=== PATIENT | female | born 1995 | race Caucasian/White ===

== ENCOUNTER 2020-06-26 11:19 | Emergency (ER) | payer BC, OTHER ==
--- NOTE | 2020-06-26 11:39 | ED Physician Documentation ---
History of Present Illness - Stated complaint Stated Complaint: FEMALE - Chief complaint Chief Complaint: Abd Pain - History obtained from History obtained from: Patient - History of Present Illness Timing: How many weeks ago (4) - Additonal information Additional information: 25-year-old female presents to the emergency department with chief complaint of persistent vaginal bleeding for 1 month ever since her IUD was removed. IUD had been in for about 2 years and it was removed in anticipation of family-planning. Patient denies that there were ever any problems with the IUD placement. She states that there are times where she will not bleed for maybe 24 hours but then flow will increase. Been persistently heavy for the last 2 to 3 days using on average 5-6 tampons a day. She does endorse mild cramping. No fevers, syncope or vertigo. No chest pain or dyspnea. She did call her OB office and was advised to follow-up in the emergency department. no pertinent psh meds: none soc: occassional tobacco and etoh Review of Systems Constitutional: reports: Reviewed and negative Nose: reports: Reviewed and negative Throat: reports: Reviewed and negative Cardiac: reports: Reviewed and negative Respiratory: reports: Reviewed and negative GI: reports: Abdominal Pain. denies: Nausea, Vomiting, Constipation, Diarrhea, Hematemesis : reports: Vaginal bleeding. denies: Dysuria, Frequency, Hesitancy Skin: reports: Reviewed and negative Musculoskeletal: reports: Reviewed and negative Neurologic: reports: Reviewed and negative. denies: Focal weakness, Near syncope, Syncope, Seizure, Headache Psychiatric: reports: Reviewed and negative Endocrine: reports: Reviewed and negative PD PAST MEDICAL HISTORY - Allergies Allergies/Adverse Reactions: Allergies Allergy/AdvReac Type Severity Reaction Status Date / Time No Known Drug Allergies Allergy Verified 06/26/20 11:27 PD ED PE EXPANDED - General General: Alert, Other (obese) - HEENT HEENT: Atraumatic, PERRL, EOMI - Neck Neck: Supple w/out meningeal sx, No tenderness. No: Limited ROM - Cardiac Cardiac: Regular Rate, Radial strong equal, Pedal strong equal, Cap refill < 2 sec - Respiratory Respiratory: Clear to ausultation lashawn. No: Distress, Labored - Abdomen Abdomen: Normal Bowel sounds. No: Tender to palpation - Derm Derm: Normal color. No: Rash, Petecchiae, Purpura - Neuro Neuro: CNII-XII intact - GCS Eye Opening: Spontaneous Motor: Obeys Commands Verbal: Oriented Total: 15 Results - Vitals Vitals: Vital Signs - 24 hr 06/26/20 06/26/20 11:24 13:27 Temperature 37 C Heart Rate 56 L 70 Respiratory 18 18 Rate Blood Pressure 152/111 H 104/62 O2 Saturation 98 99 Oxygen O2 Source Room air - Labs Labs: Laboratory Tests 06/26/20 06/26/20 06/26/20 11:33 11:58 11:58 WBC 9.0 RBC 4.32 Hgb 13.2 Hct 39.6 MCV 91.7 MCH 30.6 MCHC 33.3 RDW 12.4 Plt Count 288 MPV 8.8 Neut # (Auto) 5.1 Lymph # (Auto) 3.1 [place] # (Auto) 0.5 Eos # (Auto) 0.2 Baso # (Auto) 0.0 Absolute Nucleated RBC 0.00 Nucleated RBC % 0.0 Sodium 139 Potassium 3.9 Chloride 104 Carbon Dioxide 24 Anion Gap 11.0 BUN 10 Creatinine 0.7 Estimated GFR (MDRD) 102 Glucose 97 Calcium 8.8 Total Bilirubin 0.7 AST 15 ALT 17 Alkaline Phosphatase 71 Total Protein 6.3 L Albumin 3.6 Globulin 2.7 Albumin/Globulin Ratio 1.3 Lipase 29 TSH HCG, Quant Urine Color YELLOW Urine Clarity HAZY Urine pH 7.0 Ur Specific [place] 1.015 Urine Protein NEGATIVE Urine Glucose (UA) NEGATIVE Urine Ketones NEGATIVE Urine Occult Blood LARGE H Urine Nitrite NEGATIVE Urine Bilirubin NEGATIVE Urine Urobilinogen 0.2 (NORMAL) Ur Leukocyte Esterase NEGATIVE Urine RBC TNTC H Urine WBC 0-3 Ur Squamous Epith Cells RARE Squamous Urine Bacteria Rare Ur Microscopic Review INDICATED Urine Culture Comments NOT INDICATED 06/26/20 06/26/20 11:58 11:58 WBC RBC Hgb Hct MCV MCH MCHC RDW Plt Count MPV Neut # (Auto) Lymph # (Auto) [place] # (Auto) Eos # (Auto) Baso # (Auto) Absolute Nucleated RBC Nucleated RBC % Sodium Potassium Chloride Carbon Dioxide Anion Gap BUN Creatinine Estimated GFR (MDRD) Glucose Calcium Total Bilirubin AST ALT Alkaline Phosphatase Total Protein Albumin Globulin Albumin/Globulin Ratio Lipase TSH 2.04 HCG, Quant < 0.60 Urine Color Urine Clarity Urine pH Ur Specific [place] Urine Protein Urine Glucose (UA) Urine Ketones Urine Occult Blood Urine Nitrite Urine Bilirubin Urine Urobilinogen Ur Leukocyte Esterase Urine RBC Urine WBC Ur Squamous Epith Cells Urine Bacteria Ur Microscopic Review Urine Culture Comments - Rads (name of study) pelvic US Radiology: Final report received, See rad report, Other (Tech reports to me no endometrial thickening. Findings of a left ovarian cyst. Pelvic fluid) PD MEDICAL DECISION MAKING - ED course Complexity details: reviewed results, re-evaluated patient, considered differential, d/w patient, d/w family ED course: 25-year-old female presents to the emergency department for evaluation of persistent vaginal bleeding for nearly 1 month following her IUD removal. Today in the emergency department and she has been normotensive and without tachycardia. Her hemoglobin globin is normal. Her electrolytes are unremarkable. She is not . Pelvic ultrasound did not reveal endometrial thickening or uterine fibroid. There is no free fluid in the pelvic cul-de-sac. We do make note of a left ovarian cyst. I discussed the presentation with the patient and her partner at the bedside. The IUD was removed because they desire to get . We discussed that it can often take 1 to 3 months for the menses to regulate once an IUD has been removed. We discussed that reassuringly she has no tachycardia or anemia and her exam is otherwise unremarkable. She does report to me that there are days that she does not bleed at all however otherwise she has a. Like cycle. I have advised her to have close follow-up with her OB to discuss this ED visit. If her cycles do not regulate a short term course of hormone replacement therapy can be considered Departure - Departure Disposition: 01 Home, Self Care Clinical Impression: Vaginal bleeding Condition: Stable Record reviewed to determine appropriate education?: Yes Instructions: ED Bleed Irregular Vaginal Comments: Kaylynn please discuss this ED visit with your OB. It can take 1 to 3 months for most menstrual cycles to regulate once an IUD has been removed. Today your labs are essentially unremarkable. You are not anemic. The ultrasound did not show any worrisome findings. Specifically no endometrial thickening or uterine fibroids. If at any point you have severe vaginal bleeding which is defined as saturating 1 pad or tampon an hour for 6 to 10 hours, have a racing heart greater than 120 at rest, feel faint or lightheaded or you feel that your symptoms are not improving please return to the emergency department
[2020-06-26 11:43] LABS: BILIRUBIN,URINE NEGATIVE (NEGATIVE); GLUCOSE, URINE (UA) NEGATIVE (NEGATIVE); KETONES,URINE (UA) NEGATIVE (NEGATIVE); LEUKOCYTE ESTERASE, URINE NEGATIVE (NEGATIVE); NITRITE,URINE NEGATIVE (NEGATIVE); OCCULT BLOOD,URINE LARGE (NEGATIVE); PROTEIN,URINE NEGATIVE (NEGATIVE); UROBILINOGEN,URINE 0.2 (NORMAL) E.U./dL (NORMAL)
[2020-06-26 11:44] LABS: CLARITY,URINE HAZY (CLEAR)
[2020-06-26 11:54] LABS: BACTERIA,URINE Rare /HPF (None Seen); RBC,URINE TNTC /HPF (0-5); SQUAMOUS EPITHELIAL CELL,UR RARE Squamous (<= Few)
[2020-06-26 12:03] LABS: BASOPHILS % (AUTO) 0.2 %; EOSINOPHILS # (AUTO) 0.2 10^3/uL (0.0-0.7); EOSINOPHILS % (AUTO) 1.7 %; HGB - HEMOGLOBIN 13.2 g/dL (12.0-16.0); LYMPHOCYTES # (AUTO) 3.1 10^3/uL (1.5-3.5); LYMPHOCYTES % (AUTO) 34.9 %; MEAN CORPUSCULAR HEMOGLOBIN 30.6 pg (27.0-31.0); MEAN CORPUSCULAR HGB CONC 33.3 g/dL (32.0-36.0); MEAN CORPUSCULAR VOLUME 91.7 fL (81.0-99.0); MEAN PLATELET VOLUME 8.8 fL (7.9-10.8); MONOCYTES # (AUTO) 0.5 10^3/uL (0.0-1.0); MONOCYTES % (AUTO) 5.9 %; NEUTROPHILS # (AUTO) 5.1 10^3/uL (1.5-6.6); NEUTROPHILS % (AUTO) 57.2 %; PLT - PLATELET COUNT 288 10^3/uL (130-450); RED BLOOD COUNT 4.32 10^6/uL (4.20-5.40); RED CELL DISTRIBUTION WIDTH 12.4 % (12.0-15.0)
[2020-06-26 12:18] LABS: ALBUMIN 3.6 g/dL (3.2-5.5); ALBUMIN/GLOBULIN RATIO 1.3 (1.0-2.2); BILIRUBIN,TOTAL 0.7 mg/dL (0.2-1.0); CALCIUM 8.8 mg/dL (8.5-10.3); CREATININE 0.7 mg/dL (0.4-1.0); TOTAL PROTEIN 6.3 g/dL (6.7-8.2)
--- NOTE | 2020-06-26 14:43 | Ultrasound Report ---
PROCEDURE: Pelvic w/Transvaginal INDICATIONS: PERSISTENT VAGINAL BLEEDING FOLLOWING IUD TECHNIQUE: Real-time scanning was performed of the pelvic organs, with image documentation. Additional endovagi nal scanning was necessary due to incomplete visualization of the adnexal and endometrial structures by transabdominal scanning. COMPARISON: None. FINDINGS: Transabdominal scanning: Limited scanning through the kidneys shows no hydronephrosis. No pathologi c free abdominal or pelvic fluid. Endovaginal scanning: Uterus: Uterus is normal in size at 9.1 x 3.2 x 3.7 cm. The endometrium measures 6.8 mm in combined thickness. Ovaries: Right ovary measures 2.7 x 2.0 x 1.9 cm. Left ovary measures 4.0 x 2.4 x 2.0 cm. Focus of d ecreased echogenicity is present within the left ovary measured 2.7 x 1.9 x 1.7 cm. IMPRESSION: Left ovarian cyst. No visualized cause of vaginal bleeding. Reviewed by: Jeane Alvarenga MD on 06/26/2020 2:42 PM PST Approved by: Jeane Alvarenga MD on 06/26/2020 2:42 PM PST Station ID: [id number]
[2020-06-26 14:59] VITALS: BP 106/79
== END 2020-06-26 14:58 | disposition home or self-care (01) ==
LOC: ED 11:19
DX: N93.9 Abnormal uterine and vaginal bleeding, unspecified (principal); N83.202 Unspecified ovarian cyst, left side; F17.200 Nicotine dependence, unspecified, uncomplicated
CPT/HCPCS: 36415; 76830; 76856; 80053; 81001; 81003; 83690; 84443; 84702; 85025; 87086; 99284

== ENCOUNTER 2021-11-08 13:27 | Outpatient (CLI) | payer BC | END 2021-11-08 13:28 | disposition home or self-care (01) | LOC: LAB 13:27 | PROVIDERS: ATTEND Nurse Practitioner Obstetrics & Gynecology | DX: O20.0 Threatened abortion (principal) | CPT/HCPCS: 36415; 84702; 86850; 86900; 86901 ==

== ENCOUNTER 2021-11-08 14:00 | Emergency (ER) | payer BC ==
[2021-11-08 14:27] LABS: CALCIUM 9.8 mg/dL (8.5-10.3); CREATININE 0.8 mg/dL (0.4-1.0); POTASSIUM 3.9 mmol/L (3.5-5.0)
[2021-11-08 14:29] LABS: BASOPHILS % (AUTO) 0.4 %; EOSINOPHILS # (AUTO) 0.1 10^3/uL (0.0-0.7); EOSINOPHILS % (AUTO) 0.8 %; HGB - HEMOGLOBIN 13.5 g/dL (12.0-16.0); LYMPHOCYTES # (AUTO) 2.7 10^3/uL (1.5-3.5); LYMPHOCYTES % (AUTO) 29.9 %; MEAN CORPUSCULAR HEMOGLOBIN 30.9 pg (27.0-31.0); MEAN CORPUSCULAR HGB CONC 34.6 g/dL (32.0-36.0); MEAN CORPUSCULAR VOLUME 89.2 fL (81.0-99.0); MEAN PLATELET VOLUME 9.1 fL (7.9-10.8); MONOCYTES # (AUTO) 0.6 10^3/uL (0.0-1.0); NEUTROPHILS # (AUTO) 5.7 10^3/uL (1.5-6.6); NEUTROPHILS % (AUTO) 61.8 %; PLT - PLATELET COUNT 332 10^3/uL (130-450); RED BLOOD COUNT 4.37 10^6/uL (4.20-5.40); RED CELL DISTRIBUTION WIDTH 11.9 % (12.0-15.0); WHITE BLOOD COUNT 9.1 x10^3/uL (4.8-10.8)
--- NOTE | 2021-11-08 14:41 | ED Physician Documentation ---
History of Present Illness - Stated complaint Stated Complaint: BLEEDING/SPOTTING - Chief complaint Chief Complaint: Abd Pain - Additonal information Additional information: 26-year-old female presents emergency department for evaluation of 3 hours heavy vaginal bleeding and lower pelvic cramping. She is newly . LMP 09/30/2021. G1, P0. She denies any fevers. She has had some mild nausea and vomiting. No dysuria urgency or frequency. She is scheduled to establish with OB next week. This is a desired . Review of Systems Constitutional: denies: Fever, Chills Throat: reports: Reviewed and negative Cardiac: reports: Reviewed and negative Respiratory: reports: Reviewed and negative GI: reports: Nausea, Vomiting : reports: LMP (09/30/2021), Vaginal bleeding Skin: reports: Reviewed and negative Musculoskeletal: reports: Reviewed and negative PD PAST MEDICAL HISTORY - Past Surgical History Past Surgical History: No - Allergies Allergies/Adverse Reactions: Allergies Allergy/AdvReac Type Severity Reaction Status Date / Time No Known Drug Allergies Allergy Verified 11/08/21 14:06 - Social History Does the pt smoke?: No Smoking Status: Never smoker PD ED PE NORMAL - General General: Alert and oriented X 3, No acute distress, Well developed/nourished, Other (Obese tearful crying) - Neck Neck: Supple, no meningeal sign, No adenopathy - Cardiac Cardiac: RRR, No murmur - Respiratory Respiratory: No respiratory distress, Clear bilaterally - Abdomen Abdomen: Normal bowel sounds, Soft, Non tender (Mild nonfocal lower pelvic tenderness. 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 Eye Opening: Spontaneous Motor: Obeys Commands Verbal: Oriented GCS Score: 15 - Psych Psych: Other (tearful, crying) Results - Vitals Vitals: Vital Signs - 24 hr 11/08/21 11/08/21 14:02 14:06 Temperature 36.2 C L 36.5 C Heart Rate 61 61 Respiratory 16 16 Rate Blood Pressure 142/92 H 142/92 H O2 Saturation 99 99 Oxygen O2 Source Room air - Labs Labs: Laboratory Tests 0311/08/21 11/08/21 13:48 14:22 14:26 WBC 9.1 RBC 4.37 Hgb 13.5 Hct 39.0 MCV 89.2 MCH 30.9 MCHC 34.6 RDW 11.9 L Plt Count 332 MPV 9.1 Neut # (Auto) 5.7 Lymph # (Auto) 2.7 [place] # (Auto) 0.6 Eos # (Auto) 0.1 Baso # (Auto) 0.0 Absolute Nucleated RBC 0.00 Nucleated RBC % 0.0 Sodium 137 Potassium 3.9 Chloride 105 Carbon Dioxide 21 Anion Gap 11.0 BUN 11 Creatinine 0.8 Estimated GFR (MDRD) 87 L Glucose 103 H Calcium 9.8 Urine Color YELLOW Urine Clarity HAZY Urine pH 5.0 Ur Specific [place] >=1.030 H Urine Protein NEGATIVE Urine Glucose (UA) NEGATIVE Urine Ketones NEGATIVE Urine Occult Blood LARGE H Urine Nitrite NEGATIVE Urine Bilirubin NEGATIVE Urine Urobilinogen 0.2 (NORMAL) Ur Leukocyte Esterase NEGATIVE Urine RBC TNTC H Urine WBC 4-5 Ur Squamous Epith Cells FEW Squamous Urine Bacteria Rare Ur Microscopic Review INDICATED Urine Culture Comments NOT INDICATED Urine HCG, Qual NEGATIVE - Rads (name of study) OB US Radiology: Other (Per building services technician. No IUP seen positive right corpus luteal cyst) PD MEDICAL DECISION MAKING - ED course Complexity details: reviewed results, re-evaluated patient, considered d ifferential, d/w patient ED course: 26-year-old female presents emergency department for evaluation of acute onset vaginal bleeding. She reports that she tested positive via urine for multiple times last week. She is concerned that she could be having a miscarriage. Today her urine is negative for however her serum hCG measures at just 7. Ultrasound did not reveal an IUP. I discussed with the patient that the threshold for urine is typically 20-25. Given that her urine is negative today and her hCG is 7 I suspect that this is likely a miscarriage. Given the lack of focal pain or findings of an IUP I advised patient to follow-up with her OB to determine if she should have repeat labs obtained within the next week or so. I discussed that in the setting of what I suspect is a miscarriage she could expect to have. Like vaginal bleeding or perhaps something a little heavier over the next few days. Otherwise emergent return precautions were discussed for severe vaginal bleeding, sudden severe focal lower abdominal pain or uncontrolled vomiting. Departure - Departure Disposition: 01 Home, Self Care Clinical Impression: Miscarriage Condition: Stable Record reviewed to determine appropriate education?: Yes Instructions: Miscarriage Dc Comments: Kaylynn santana are seen today in the emergency department for vaginal bleeding. You reported that you tested positive for at home a number of times earlier in the week. The hormone level that is usually consistent with urine testing positive for is usually around 20-25. Today your hormone level is 7 and your urine does not show that you are . The ultrasound also shows no signs of intrauterine . I suspect that what is occurring is that you are having a miscarriage very early in your first trimester. Given how early this miscarriages I would expect you to have. Like vaginal bleeding or something that is a little heavier for the next few days. If at any point you develop sudden severe vaginal bleeding, have fainting, uncontrolled vomiting or sudden severe lower belly pain then please return to the ER for second evaluation. Please discuss this ED visit with your OB at [facility] to determine if they want to recheck your labs within the next week. In general in people who are otherwise healthy you can attempt to get again after your next full cycle. I am sorry that this is happening to you and I wish you well moving forward
[2021-11-08 14:43] LABS: BILIRUBIN,URINE NEGATIVE (NEGATIVE); GLUCOSE, URINE (UA) NEGATIVE (NEGATIVE); KETONES,URINE (UA) NEGATIVE (NEGATIVE); LEUKOCYTE ESTERASE, URINE NEGATIVE (NEGATIVE); NITRITE,URINE NEGATIVE (NEGATIVE); OCCULT BLOOD,URINE LARGE (NEGATIVE); PROTEIN,URINE NEGATIVE (NEGATIVE); UROBILINOGEN,URINE 0.2 (NORMAL) E.U./dL (NORMAL)
[2021-11-08 14:45] LABS: CLARITY,URINE HAZY (CLEAR); HCG UR QUAL NEGATIVE
[2021-11-08 15:13] LABS: BACTERIA,URINE Rare /HPF (None Seen); RBC,URINE TNTC /HPF (0-5); SQUAMOUS EPITHELIAL CELL,UR FEW Squamous (<= Few)
[2021-11-08 16:08] VITALS: BP 136/80
--- NOTE | 2021-11-08 16:09 | Ultrasound Report ---
PROCEDURE: OB First Trimester w/TV INDICATIONS: vag bleeding TECHNIQUE: Real-time ultrasound imaging of the uterus and ovaries was performed. COMPARISON: None. FINDINGS: The uterus is anteverted. The cervix appears closed. The endometrium is grossly normal in thickness. No endometrial fluid collections. The myometrium is homogeneous. The right ovary contains a dominant follicle measuring 1.5 cm. The left ovary has a grossly normal mo rphology. No suspicious adnexal masses or free fluid. IMPRESSION: 1. Dominant follicle on the right ovary, potentially an early corpus luteum. 2. No evidence of intrauterine . This may reflect early . 3. No secondary signs of ectopic in the pelvis. This however cannot be excluded. Close foll ow-up with beta hCG levels and reimaging in 2-3 weeks to confirm viability is recommended. 4. Preliminary report given by the helicopter mechanic to the ordering provider. Reviewed by: Katherine Mallory MD on 11/08/2021 4:08 PM PDT Approved by: Katherine Mallory MD on 11/08/2021 4:08 PM PDT Station ID: [id number]
== END 2021-11-08 16:07 | disposition home or self-care (01) ==
LOC: ED 14:00
DX: O03.9 Complete or unspecified spontaneous abortion without complication (principal); Z3A.01 Less than 8 weeks gestation of pregnancy
CPT/HCPCS: 36415; 80048; 81001; 81003; 81025; 84702; 85025; 86850; 86900; 86901; 87086; 99284

== ENCOUNTER 2023-12-08 10:33 | Emergency (ER) | payer BC ==
[2023-12-08 10:57] VITALS: O2SAT 99
[2023-12-08 11:20] LABS: BILIRUBIN,URINE MODERATE (NEGATIVE); GLUCOSE, URINE (UA) NEGATIVE (NEGATIVE); KETONES,URINE (UA) >=80 mg/dL (NEGATIVE); LEUKOCYTE ESTERASE, URINE TRACE (NEGATIVE); NITRITE,URINE NEGATIVE (NEGATIVE); OCCULT BLOOD,URINE NEGATIVE (NEGATIVE); PROTEIN,URINE 100 mg/dL (NEGATIVE); UROBILINOGEN,URINE 2 E.U./dL (NORMAL)
[2023-12-08 11:21] LABS: CLARITY,URINE CLEAR (CLEAR)
[2023-12-08 11:22] LABS: HCG UR QUAL NEGATIVE
[2023-12-08 11:29] LABS: BACTERIA,URINE Moderate /HPF (None Seen); RBC,URINE 0-5 /HPF (0-5); SQUAMOUS EPITHELIAL CELL,UR MOD Squamous (<= Few); WBC,URINE 0-3 /HPF (0-5)
[2023-12-08 11:32] LABS: BASOPHILS % (AUTO) 0.3 %; EOSINOPHILS % (AUTO) 0.2 %; HCT - HEMATOCRIT 42.5 % (37.0-47.0); HGB - HEMOGLOBIN 14.5 g/dL (12.0-16.0); LYMPHOCYTES # (AUTO) 2.3 10^3/uL (1.5-3.5); LYMPHOCYTES % (AUTO) 19.7 %; MEAN CORPUSCULAR HEMOGLOBIN 31.3 pg (27.0-31.0); MEAN CORPUSCULAR HGB CONC 34.1 g/dL (32.0-36.0); MEAN CORPUSCULAR VOLUME 91.6 fL (81.0-99.0); MEAN PLATELET VOLUME 9.1 fL (7.9-10.8); MONOCYTES # (AUTO) 0.8 10^3/uL (0.0-1.0); NEUTROPHILS # (AUTO) 8.4 10^3/uL (1.5-6.6); NEUTROPHILS % (AUTO) 72.5 %; PLT - PLATELET COUNT 367 10^3/uL (130-450); RED BLOOD COUNT 4.64 10^6/uL (4.20-5.40); RED CELL DISTRIBUTION WIDTH 12.3 % (12.0-15.0); WHITE BLOOD COUNT 11.5 x10^3/uL (4.8-10.8)
[2023-12-08 11:46] LABS: ALBUMIN 4.6 g/dL (3.2-5.5); ALBUMIN/GLOBULIN RATIO 1.8 (1.0-2.2); BILIRUBIN,TOTAL 0.7 mg/dL (0.2-1.0); CALCIUM 9.9 mg/dL (8.5-10.3); CREATININE 0.9 mg/dL (0.6-1.3); POTASSIUM 3.4 mmol/L (3.5-4.5); TOTAL PROTEIN 7.2 g/dL (6.4-8.9)
--- NOTE | 2023-12-08 12:54 | ED Physician Documentation ---
PD HPI GI BLEED - Stated complaint Stated Complaint: VOMITING BLOOD/DIZZY - Chief complaint Chief Complaint: Abd Pain - Additional information Additional information: 28-year-old female with no pertinent past medical history presents emergency department for midepigastric pain with dark black emesis. Patient says that she recently went to the walk-in clinic and she says that they tested her emesis there and there was found to be blood in it which is what led her to come to the emergency department. Patient states 48 hours ago she started having severe midepigastric pain nausea vomiting and describes her emesis as dark black. She says she has never experienced anything like this before She does not take any medications for anything daily no blood thinners. Last period was about a week ago. 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 : None HEENT: None Psych: Anxiety, Panic attacks Musculoskeletal: None Derm: None - Past Surgical History Past Surgical History: Yes HEENT: Tonsil/Adenoidectomy - Present Medications Home Medications: Ambulatory Orders Medication Instructions Recorded Confirmed Ondansetron Odt [Zofran Odt] 4 mg TL Q6H PRN #10 tablet 12/08/23 Pantoprazole [Protonix] 40 mg ORAL DAILY 30 Days #30 tablet 12/08/23 Sucralfate [Carafate] 1 gm PO QID #100 ml 12/08/23 - Allergies Allergies/Adverse Reactions: Allergies Allergy/AdvReac Type Severity Reaction Status Date / Time No Known Drug Allergies Allergy Verified 12/08/23 10:50 - Social History Does the pt smoke?: Yes Smoking Status: Current some day smoker Does the pt drink ETOH?: Yes Does the pt have substance abuse?: Yes Substance Use and Type: Marijuana, CBD oil / Products - Immunizations Immunizations are current?: No Immunizations: Other immun not current - POLST Patient has POLST: No PD ED PE NORMAL - Vitals Vital signs reviewed: Yes - General General: Alert and oriented X 3, No acute distress, Well developed/nourished - Cardiac Cardiac: RRR - Respiratory Respiratory: No respiratory distress, Clear bilaterally - Abdomen Abdomen: Normal bowel sounds, Soft, No organomegaly, Other (mid-epigastric tenderness) - Back Back: No CVA TTP - Derm Derm: Normal color, Warm and dry, No rash - Extremities Extremities: No deformity, No edema - Neuro Neuro: Alert and oriented X 3 - Psych Psych: Normal mood, Normal affect Results - Vitals Vitals: Vital Signs - 24 hr 12/08/23 12/08/23 10:51 14:00 Temperature 36.5 C Heart Rate 60 54 L Respiratory 18 14 Rate Blood Pressure 141/86 H 132/78 H O2 Saturation 99 99 Oxygen O2 Source Room air - EKG (time done) 1102 EKG releavant findings:: EKG personally interpreted by author of this note. Relevant findings are: Rate: Rate (enter#) (52) Rhythm: Sinus bradycardia [place]: Normal Intervals: Normal HI, QRS normal. No: Prolonged QT QRS: Normal Ischemia: Normal ST segments Computer interpretation: Agree with computer - Labs Labs: Laboratory Tests 12/08/23 12/08/23 12/08/23 11:10 11:20 11:20 WBC 11.5 H RBC 4.64 Hgb 14.5 Hct 42.5 MCV 91.6 MCH 31.3 H MCHC 34.1 RDW 12.3 Plt Count 367 MPV 9.1 Neut # (Auto) 8.4 H Lymph # (Auto) 2.3 [place] # (Auto) 0.8 Eos # (Auto) 0.0 Baso # (Auto) 0.0 Absolute Nucleated RBC 0.00 Nucleated RBC % 0.0 Sodium 139 Potassium 3.4 L Chloride 102 Carbon Dioxide 29 Anion Gap 8.0 BUN 13 Creatinine 0.9 Estimated GFR (MDRD) 75 L Glucose 113 H Calcium 9.9 Total Bilirubin 0.7 AST 10 ALT 10 Alkaline Phosphatase 62 Total Protein 7.2 Albumin 4.6 Globulin 2.6 Albumin/Globulin Ratio 1.8 Lipase 35 Urine Color DARK YELLOW Urine Clarity CLEAR Urine pH 8.0 H Ur Specific [place] 1.025 Urine Protein 100 H Urine Glucose (UA) NEGATIVE Urine Ketones >=80 H Urine Occult Blood NEGATIVE Urine Nitrite NEGATIVE Urine Bilirubin MODERATE H Urine Urobilinogen 2 H Ur Leukocyte Esterase TRACE H Urine RBC 0-5 Urine WBC 0-3 Ur Squamous Epith Cells MOD Squamous H Urine Bacteria Moderate H Ur Microscopic Review INDICATED Urine Culture Comments NOT INDICATED Urine HCG, Qual NEGATIVE - Rads (name of study) CT abdomen pelvis Relevant Findings:: Final report received, EMP independent interpretation of test, Other (Distal antral gastric ulcer with gastritis) PD Medical Decision Making - ED course ED course: 28-year-old female sent to the emergency department from walk-in clinic for concerns of GI bleed and midepigastric pain. Differentials include but are not limited to gastric ulcer with perforation, gastric ulcer, gastritis, upper GI bleed. Labs are complete she has mild leukocytosis, 11.5 neutrophils are slight ly elevated at 8.4 and no anemia. Chemistry is for the most part within normal limits, potassium 3.4, GFR 75, glucose slightly elevated at 113. CT abdomen pelvis with contrast was complete for further evaluation of her abdominal pain and she was found to have a distal antral gastric ulcer with associated gastritis. Patient reported significant if not complete alleviation of pain and symptoms after Carafate, Protonix, Zofran. Patient was given a prescription of Protonix and Carafate to her preferred pharmacy she is also told to follow-up with her primary care provider who she does not have established with right now she said that she is reaching out to someone off the sims to get established with her primary care she is also given [facility] contact information for further evaluation of this and possible endoscopy colonoscopy. Patient given return precautions all questions answered safe for discharge at this time. Departure - Departure Disposition: 01 Home, Self Care Clinical Impression: Gastric ulcer Qualifiers: Gastric ulcer chronicity: acute Gastric ulcer complication status: unspecified whether hemorrhage or perforation present Qualified Code(s): K25.3 - Acute gastric ulcer without hemorrhage or perforation Gastritis Qualifiers: Gastritis type: other gastritis Chronicity: acute Gastritis bleeding: with bleeding Qualified Code(s): K29.01 - Acute gastritis with bleeding Condition: Stable Instructions: Gastric Ulcer, ED PUD Vs Gastritis Follow-Up: [facility] [Provider Group] Prescriptions: Sucralfate [Carafate] 1 gm PO QID #100 ml Pantoprazole [Protonix] 40 mg ORAL DAILY 30 Days #30 tablet Ondansetron Odt [Zofran Odt] 4 mg TL Q6H PRN #10 tablet PRN Reason: Nausea / Vomiting Comments: Thank you for trusting us with your care. We have completed labs and we are not showing any significant anemia caused by your gastritis. I believe the symptoms you are experiencing are due to a gastric ulcer confirmed on CT. See CT radiology imaging report below. I have sent a referral to our local surgeons for further evaluation I do believe that your next labs are completing a upper and lower scope. I would strongly encourage you to establish care with a primary care provider soon as possible for further evaluation of this as well as a GI referral. I have sent a referral to our local surgeons to have the scope completed here at the hospital if needed. I have also sent a prescription of Carafate you will take this liquid medicine about 4 defendants before you eat 4 times a day and have also started you on an antacid medication pantoprazole that you will take daily in the morning. I have also sent some ondansetron. Please come back to the emergency department if you are experiencing worsening sym ptoms, also known as Zofran medication to help with any nausea symptoms that you are experiencing fevers or chills, or any other concerning emergent symptoms. Wishing a speedy recovery. FINDINGS: Image quality: Diagnostic. Lower chest: Unremarkable. Liver: No solid mass. Gallbladder and biliary tree: No radiopaque stones or wall thickening. No biliary dilation. Spleen: No splenomegaly. Pancreas: No pancreatic ductal dilation. Adrenals: No adrenal nodule. Kidneys and ureters: No hydronephrosis. No renal cystic lesion which requires follow up. No solid mass. Stomach, bowel and peritoneum: There is diffuse thickening of the wall of the distal body and antrum of the stomach consistent with gastritis. There is a gastric ulceration present in the region of the distal antrum anteriorly superiorly. Reference coronal image 60 of series 4 and axial image 44 series 2. The cecum and proximal and mid descending colon are decompressed but have a suggestion of possible diffuse wall thickening. Consider segmental colitis. Reference coronal image 70 of series 4. No free air or free fluid or abscess cavity. Lymph nodes: No central or retroperitoneal adenopathy. Vessels: No infrarenal aortic aneurysm. PELVIS Reproductive organs: Unremarkable. Bladder: No abnormal wall thickening, accounting for underdistention. Pelvic lymph nodes: No pelvic adenopathy by size criteria. Bones: No aggressive osseous abnormality. There is a moderately large broad- based disc protrusion at L5-S1 resulting in severe canal stenosis. Other: No significant ventral or inguinal hernia. IMPRESSION: 1. Distal antral gastric ulcer with associated gastritis. 2. Question segmental proximal colitis. 3. Moderately large disc protrusion at L5-S1 results in severe canal stenosis.. Forms: PCP List Discharge Date/Time: 12/08/23 14:36
[2023-12-08] MEDS ORDERED: iohexoL-300 100 ML VIAL ONE (13:04)
[2023-12-08] MEDS: ONDANSETRON 4 MG/2 ML VIAL IVP STA (13:07)
[2023-12-08] MEDS: SUCRALFATE 1 GM/10 ML UDC PO STA (13:07)
[2023-12-08] MEDS: SODIUM CHLORIDE 0.9% 1,000 ML IV ONE (13:09)
--- NOTE | 2023-12-08 13:37 | CT Report ---
PROCEDURE: Abdomen/Pelvis W INDICATIONS: hemataemesis. mid epigastric pain CONTRAST: 100ml [id number] TECHNIQUE: After the administration of intravenous contrast, a CT scan of the abdomen and pelvis was performed. Images were recorded and evaluated at appropriate window settings. Reformats: coronal and sagittal. F or radiation dose reduction, the following was used: automated exposure control, adjustment of mA and /or kV according to patient size. COMPARISON: None. FINDINGS: Image quality: Diagnostic. Lower chest: Unremarkable. Liver: No solid mass. Gallbladder and biliary tree: No radiopaque stones or wall thickening. No biliary dilation. Spleen: No splenomegaly. Pancreas: No pancreatic ductal dilation. Adrenals: No adrenal nodule. Kidneys and ureters: No hydronephrosis. No renal cystic lesion which requires follow up. No solid mas s. Stomach, bowel and peritoneum: There is diffuse thickening of the wall of the distal body and antrum of the stomach consistent with gastritis. There is a gastric ulceration present in the region of the distal antrum anteriorly superiorly. Reference coronal image 60 of series 4 and axial image 44 series 2. The cecum and proximal and mid descending colon are decompressed but have a suggestion of possibl e diffuse wall thickening. Consider segmental colitis. Reference coronal image 70 of series 4. No robson e air or free fluid or abscess cavity. Lymph nodes: No central or retroperitoneal adenopathy. Vessels: No infrarenal aortic aneurysm. PELVIS Reproductive organs: Unremarkable. Bladder: No abnormal wall thickening, accounting for underdistention. Pelvic lymph nodes: No pelvic adenopathy by size criteria. Bones: No aggressive osseous abnormality. There is a moderately large broad-based disc protrusion at L5-S1 resulting in severe canal stenosis. Other: No significant ventral or inguinal hernia. IMPRESSION: 1. Distal antral gastric ulcer with associated gastritis. 2. Question segmental proximal colitis. 3. Moderately large disc protrusion at L5-S1 results in severe canal stenosis.. Reviewed by: Jimmy Schroeder MD on 12/08/2023 1:35 PM PDT Approved by: Jimmy Schroeder MD on 12/08/2023 1:35 PM PDT Station ID: [id number]
[2023-12-08 14:13] VITALS: BP 132/78
[2023-12-08] MEDS: PANTOPRAZOLE 40 MG TABLET PO STA (14:29)
[2023-12-08] MEDS: iohexoL-300 100 ML VIAL IVP ONE (16:05)
== END 2023-12-08 14:36 | disposition home or self-care (01) ==
LOC: ED 10:33
DX: K25.0 Acute gastric ulcer with hemorrhage (principal); F17.200 Nicotine dependence, unspecified, uncomplicated
CPT/HCPCS: 36415; 74177; 80053; 81001; 81025; 83690; 85025; 93005; 96374; 99283; 99284; A9270; Q9967; 81003; 87086

== ENCOUNTER 2023-12-16 10:48 | Outpatient (CLI) | payer BC ==
[2023-12-16 14:43] LABS: BASOPHILS % (AUTO) 0.5 %; EOSINOPHILS # (AUTO) 0.1 10^3/uL (0.0-0.7); EOSINOPHILS % (AUTO) 1.6 %; HCT - HEMATOCRIT 41.6 % (37.0-47.0); HGB - HEMOGLOBIN 13.3 g/dL (12.0-16.0); LYMPHOCYTES # (AUTO) 2.2 10^3/uL (1.5-3.5); LYMPHOCYTES % (AUTO) 35.6 %; MEAN CORPUSCULAR HEMOGLOBIN 30.5 pg (27.0-31.0); MEAN CORPUSCULAR VOLUME 95.4 fL (81.0-99.0); MEAN PLATELET VOLUME 9.8 fL (7.9-10.8); MONOCYTES # (AUTO) 0.4 10^3/uL (0.0-1.0); MONOCYTES % (AUTO) 5.9 %; NEUTROPHILS # (AUTO) 3.4 10^3/uL (1.5-6.6); NEUTROPHILS % (AUTO) 56.2 %; PLT - PLATELET COUNT 322 10^3/uL (130-450); RED BLOOD COUNT 4.36 10^6/uL (4.20-5.40); WHITE BLOOD COUNT 6.1 x10^3/uL (4.8-10.8)
[2023-12-16 15:14] LABS: CHOL/HDL RATIO 3.9 (<4.4); CHOLESTEROL 171 mg/dL; HDL CHOLESTEROL 44 mg/dL; LDL CHOLESTEROL,CALCULATED 109 mg/dL; LDL/HDL RATIO 2.5 (<4.4); TRIGLYCERIDES 91 mg/dL (48-352); VLDL CHOLESTEROL 18 mg/dL
[2023-12-16 21:26] LABS: ESTIMATED AVERAGE GLUCOSE 88 mg/dL (70-100); HEMOGLOBIN A1c% 4.7 % (4.27-6.07)
== END 2023-12-16 10:49 | disposition home or self-care (01) ==
LOC: LAB.S 10:48
PROVIDERS: ATTEND Internal Medicine
DX: K92.0 Hematemesis (principal); Z13.1 Encounter for screening for diabetes mellitus; Z13.220 Encounter for screening for lipoid disorders
CPT/HCPCS: 36415; 80061; 83036; 83721; 85025

== ENCOUNTER 2024-03-16 15:32 | Outpatient (CLI) | payer BC | END 2024-03-16 15:33 | disposition home or self-care (01) | LOC: DI.S 15:32 | PROVIDERS: ATTEND Chiropractor | DX: Z53.9 Procedure and treatment not carried out, unspecified reason (principal) ==